=== PATIENT | male | born 1980 | race Caucasian/White ===

== ENCOUNTER 2016-07-08 09:46 | Emergency (ER) | payer BC ==
[~2016-07-08] VITALS: Ht 175.3 cm; Wt 77.0 kg
[~2016-07-08 09:46] MED LIST: BACTRIM,SEPT1 TABLET PO; CEFTIN250 MG PO; DILAUDID2 MG PO; LEVAQUIN250 MG PO; LEVAQUIN500 MG PO; MIRALAX17 GM PO; MOTRIN800 MG PO; OXYCODONE HCL5 MG PO; PEPTO BISMOL240 ML PO; PERCOCET 7.51 TABLET PO; PROTONIX40 MG PO; ROXICODONE5 MG PO; SUCRALFATE1 GM/10 ML PO; TAMSULOSIN HCL0.4 MG PO; ZOFRAN ODT8 MG PO
[2016-07-08] MEDS ORDERED: OXYCONTIN15 MG PO (10:40)
[2016-07-08] MEDS ORDERED: GABAPENTIN300 MG PO (10:41)
[2016-07-08] MEDS ORDERED: MORPHINE SULFAT30 M2 PO (10:42)
[2016-07-08 11:26] LABS: HEMATOCRIT 40.7 % (38.0-50.0); MCH 29.4 PG (29.0-34.0); MCHC 34.4 G/DL (30.0-36.0); MCV 85.3 FL (86-99); MEAN PLAT.VOLUME 10.8 uM^3 (9.0-12.4); PLATELET COUNT 215 K/uL (156-360); RBC DIS.WIDTH-CV 12.3 % (11.8-14.6); RBC DIS.WIDTH-SD 38.2 % (39-53); RED BLOOD COUNT 4.77 M/uL (4.00-5.50); WHITE BLOOD COUNT 5.2 K/uL (4.1-10.2)
[2016-07-08 11:43] LABS: CHLORIDE 102 mEq/L (99-109); POTASSIUM 4.2 mEq/L (3.7-5.4); SODIUM 137 mEq/L (136-147)
[2016-07-08 11:45] LABS: GLUCOSE 101 mg/dL (70-99)
[2016-07-08 11:46] LABS: ANION GAP 12 MEQ/L (2-14)
[2016-07-08 11:47] LABS: TOTAL BILIRUBIN 0.9 mg/dL (0.0-1.0)
[2016-07-08 11:49] LABS: ALKALINE PHOSPHATASE 68 IU/L (3-129); GFR ESTIMATE (CALCULATED) > 59 mL/min/
[2016-07-08 11:50] LABS: UREA NITROGEN (BUN) 18 mg/dL (9-23)
[2016-07-08 11:52] LABS: LIPASE 11 U/L (1.0-51.0)
[2016-07-08 13:59] LABS: ADD MIUA? YES; BILIRUBIN NEGATIVE; BLOOD NEGATIVE; COLOR YELLOW ((YELLOW)); GLUCOSE (STRIP) NEGATIVE; KETONES 80; LEUKOCYTES NEGATIVE; NITRITE NEGATIVE; PROTEIN (STRIP) 30; SPECIFIC GRAVITY 1.025 (1.000-1.030)
[2016-07-08 14:04] LABS: BACTERIA RARE /HPF; EPITHELIAL CELLS NONE SEEN /HPF; MUCUS 4+ /LPF; RED BLOOD CELLS 0-5 /HPF (0-5); UCUL ADDED? NO; WHITE BLOOD CELLS 0-5 /HPF (0-5)
[2016-07-08] MEDS ORDERED: PHENERGAN25 MG PR (15:33)
[2016-07-08] MEDS ORDERED: ZOFRAN ODT4 MG PO (15:33)
[2016-07-08 15:41] VITALS: BP 138/96
== END 2016-07-08 15:44 | disposition home or self-care (01) ==
LOC: EME 09:46
DX: A08.4 Viral intestinal infection, unspecified (principal); F11.23 Opioid dependence with withdrawal; Z79.891 Long term (current) use of opiate analgesic
CPT/HCPCS: 80053; 81003; 83690; 85027; 99281; 99285; J1885; J3010